=== PATIENT | male | born 1955 | race Caucasian/White ===

== ENCOUNTER 2022-10-10 10:10 | Outpatient (CLI) | payer OTHER | END 2022-10-10 10:11 | disposition home or self-care (01) | LOC: SCSRAD 10:10 | PROVIDERS: ATTEND Family Medicine | DX: M79.674 Pain in right toe(s) (principal) ==

== ENCOUNTER 2025-07-07 08:45 | Outpatient (CLI) | payer OTHER | END 2025-07-07 08:46 | disposition home or self-care (01) | LOC: PET 08:45 | PROVIDERS: ATTEND Internal Medicine Hematology & Oncology | DX: C83.33 Diffuse large B-cell lymphoma, intra-abdominal lymph nodes (principal); R93.5 Abnormal findings on diagnostic imaging of other abdominal regions, including retroperitoneum | CPT/HCPCS: 78815; A9552 ==